=== PATIENT | female | born 1960 | race Caucasian/White ===

== ENCOUNTER 2017-04-17 15:47 | Emergency (ER) | payer OTHER ==
[~2017-04-17] VITALS: Ht 172.7 cm; Wt 65.8 kg
[2017-04-17] MEDS ORDERED: PROZAC40 MG PO (15:59)
[2017-04-17] MEDS ORDERED: METOPROLOL SUCC50 MG PO (16:58)
[2017-04-17] MEDS ORDERED: XANAX0.5 MG PO (16:58)
--- NOTE | 2017-04-18 10:35 | EKG ---
[facility] [address] [facility] [place] [address] Signed Sinus tachycardia Otherwise normal ECG No previous ECGs available Confirmed by SARATH PALMER MD ([id number] on 04/18/2017 10:35:33 AM Electronically Signed By: SARATH PALMER MD 04/18/17 1035 PATIENT NAME: JOSEPH CASTILLO Electrocardiogram DATE OF : 62 PHYSICIAN: SARATH PALMER MD REPORT #: [id number] REPORT IS CONFIDENTIAL AND NOT TO BE RELEASED WITHOUT AUTHORIZATION
== END 2017-04-17 17:05 | disposition home or self-care (01) ==
LOC: ED 15:47
DX: R07.9 Chest pain, unspecified (principal); F41.9 Anxiety disorder, unspecified; I10 Essential (primary) hypertension; I48.91 Unspecified atrial fibrillation; Z88.5 Allergy status to narcotic agent; Z79.899 Other long term (current) drug therapy
CPT/HCPCS: 71010; 80053; 84484; 85025; 93005; 93010; 96374; 96375; 99284; J1885; J2060; J2405